=== PATIENT | female | born 1940 | race African-American/Black ===

== ENCOUNTER 2019-11-04 10:34 | Emergency (ER) | payer OTHER ==
[~2019-11-04] VITALS: Ht 167.6 cm; Wt 125.0 kg
[2019-11-04] MEDS ORDERED: ACETAMINOPHEN 325MG TABLET PO STA (10:56)
[2019-11-04] MEDS ORDERED: SODIUM CHLORIDE 0.9% 250 ML IV ONE (10:56)
[2019-11-04 12:14] LABS: MEAN CORPUSCULAR HEMOGLOBIN 32.2 pg (28.0-32.0); MEAN PLATELET VOLUME 7.1 fl (7.4-10.4); PLATELET 218 x1000/uL (130-400); RED BLOOD CELL COUNT 3.73 mill/uL (4.2-5.4); RED CELL DISTRIBUTION WIDTH 15.1 % (11.6-14.6)
[2019-11-04 12:19] LABS: CHLORIDE 100 mEq/L (98-107)
[2019-11-04 12:22] LABS: INR 1.1; PROTHROMBIN TIME 11.4 sec (9.6-11.0)
[2019-11-04 12:28] LABS: CREATINE KINASE 58 IU/L (26-192)
[2019-11-04 12:54] LABS: PLATELET ESTIMATE NORMAL
[2019-11-04] MEDS ORDERED: SODIUM CHLORIDE 0.9% 500 ML IV ONE (13:00)
[2019-11-04] MEDS ORDERED: VANCOMYCIN 1 G PREMIX 200 ML IV SCH (13:00)
[2019-11-04] MEDS ORDERED: PIPERACILLIN/TAZOBACTAM 3.375GM/50ML PREMIX IV ONE (13:00)
[2019-11-04] MEDS ORDERED: INSULIN REGULAR (HUMULIN R) 300UNITS/3ML SUBCUT ONE (13:15)
[2019-11-04] MEDS ORDERED: PIPERACILLIN/TAZ 3.375G PREMIX 50 ML IV ONE (13:15)
[2019-11-04 15:42] LABS: CLARITY URINE CLOUDY (CLEAR); COLOR URINE YELLOW (YELLOW); KETONES URINE NEGATIVE (NEGATIVE); LEUKOCYTE ESTERASE URINE 1+ (NEGATIVE); NITRITE URINE NEGATIVE (NEGATIVE); OCCULT BLOOD URINE 2+ (NEGATIVE); PROTEIN URINE NEGATIVE (NEGATIVE); SPECIFIC GRAVITY URINE 1.025 (1.005-1.030); UROBILINOGEN URINE 0.2 E.U./dL (0.2-1.0)
[2019-11-04 20:53] VITALS: BP 182/62
== END 2019-11-04 21:20 | disposition short-term general hospital (02) ==
LOC: ER 10:34 → EDBEDREQ 13:04 → EDBEDREQSVC 13:04 → EDBEDREQTM 13:04 → ER 21:20 → CANBEDREQ 22:13
DX: A41.9 Sepsis, unspecified organism (principal); N39.0 Urinary tract infection, site not specified; I10 Essential (primary) hypertension; E11.65 Type 2 diabetes mellitus with hyperglycemia; Z79.4 Long term (current) use of insulin
CPT/HCPCS: 36415; 71045; 74176; 80053; 81003; 82550; 82962; 83605; 83690; 84145; 84484; 85025; 85610; 87040; 87086; 93005; 99291; J1815; J2543; J3370; J7030

== ENCOUNTER 2020-04-21 03:10 | Emergency (ER) | payer OTHER ==
[~2020-04-21] VITALS: Ht 160 cm; Wt 104.0 kg
[2020-04-21 03:44] LABS: HEMATOCRIT. 29.9 % (36.0-48.0); HEMOGLOBIN. 9.3 g/dL (12.0-16.0); MEAN CORPUSCULAR HEMOGLOBIN 28.2 pg (28.0-32.0); MEAN CORPUSCULAR VOLUME 90.6 fL (81.0-99.0); MEAN PLATELET VOLUME 6.5 fl (7.4-10.4); PLATELET 496 x1000/uL (130-400)
[2020-04-21] MEDS ORDERED: FUROSEMIDE 100MG/10ML VIAL IVP ONE (03:45)
[2020-04-21 03:51] LABS: CHLORIDE 98 mEq/L (98-107)
[2020-04-21] MEDS ORDERED: PIPERACILLIN/TAZOBACTAM 3.375GM/50ML PREMIX IV ONE (04:15)
[2020-04-21] MEDS ORDERED: VANCOMYCIN 1 G PREMIX 200 ML IV NR (04:15)
[2020-04-21] MEDS ORDERED: PIPERACILLIN/TAZ 3.375G PREMIX 50 ML IV NR (04:15)
[2020-04-21 04:39] LABS: PLATELET ESTIMATE NORMAL
[2020-04-21 05:32] LABS: CLARITY URINE CLEAR (CLEAR); COLOR URINE YELLOW (YELLOW); KETONES URINE NEGATIVE (NEGATIVE); LEUKOCYTE ESTERASE URINE 2+ (NEGATIVE); NITRITE URINE POSITIVE (NEGATIVE); OCCULT BLOOD URINE TRACE (NEGATIVE); PH URINE 6.5 (4.5-8.0); PROTEIN URINE NEGATIVE (NEGATIVE); SPECIFIC GRAVITY URINE 1.007 (1.005-1.030); UROBILINOGEN URINE 0.2 E.U./dL (0.2-1.0)
[2020-04-21] MEDS ORDERED: CEPH250C2 MT (05:41)
[2020-04-21 09:48] VITALS: BP 111/49
== END 2020-04-21 09:48 | disposition short-term general hospital (02) ==
LOC: ER 03:10
DX: A41.9 Sepsis, unspecified organism (principal); N39.0 Urinary tract infection, site not specified; D64.9 Anemia, unspecified; R06.00 Dyspnea, unspecified; E11.9 Type 2 diabetes mellitus without complications; I11.0 Hypertensive heart disease with heart failure; Z60.2 Problems related to living alone; Z85.3 Personal history of malignant neoplasm of breast
CPT/HCPCS: 36415; 71045; 80053; 81003; 82962; 83605; 83880; 84145; 84484; 85025; 87040; 93005; 96365; 96366; 96368; 96375; 99285; J1940; J2543; J3370